=== PATIENT | male | born 1965 | race Caucasian/White ===

== ENCOUNTER 2018-03-09 16:32 | Inpatient (IN) ==
--- NOTE | 2018-03-09 17:24 | Emergency Department Note ---
Disposition Clinical Impression: GI bleeding Qualifiers: GI bleed type/associated pathology: unspecified gastrointestinal hemorrhage type Qualified Code(s): K92.2 - Gastrointestinal hemorrhage, unspecified Disposition: Admitted As Inpatient Condition: Good [facility] - Forms: ED Satisfaction Letter General Adult HPI - General Chief complaint: ED GI Bleed Stated complaint: rectal bleeding Source: patient, EMS Limitations: no limitations Nursing Notes Reviewed: Yes Vital Signs Reviewed: Yes - History of Present Illness HPI Narrative: Patient sent over for diagnosis of GI bleed. Patient takes aspirin and naproxen with no other blood thinners. Patient was seen and evaluated previously in the emergency department for evaluation of GI bleeding. Patient did have a workup and was not found to be significantly anemic so he was set up to have an outpatient colonoscopy performed. His colonoscopy is set up for . However today the patient noticed bright red blood draining down his shorts into his underwear. Patient has had 2 significant episodes of bright red blood per rectum today. He was seen at the [facility] and transferred secondary to a 2 g hemoglobin drop. On exam the patient does have significant bleeding per rectum with bright red blood. Not actively bleeding on my exam. Patient does have associated hemorrhoids. Patient is complaining of dizziness and shortness of breath with exertion. Patient will be brought in for concern for active GI bleed. White blood cell count 11.9. Hemoglobin 13.4. Recently 15.5. Platelets 181. Sodium 136. Potassium 3.9. Chloride 103. CO2 28. Glucose 93. History of hemorrhoids, prostatitis, sciatica, MRSA carrier, bronchopneumonia, hyperlipidemia, hypertension, sleep apnea, obesity, anxiety, low back pain. Pain Scale: 5 - Related Data Previous Rx's Medication Instructions Recorded Docusate [Colace] 100 mg PO BID #14 capsule 03/05/18 Ciprofloxacin [Cipro] 500 mg PO BID #20 mls 03/08/18 Hydrocortisone/Pramoxine 10 gm RC TID PRN #1 foam 03/08/18 [Proctofoam-Hc 1%-1% Foam] José Manuel Orquidea [Tucks] 1 each TP TID #100 med..pad 03/08/18 Allergies Allergy/AdvReac Type Severity Reaction Status Date / Time pseudoephedrine Allergy See Verified 03/09/18 16:36 Comments topiramate Allergy See Verified 03/09/18 16:36 Comments triprolidine Allergy See Verified 03/09/18 16:36 Comments atenolol AdvReac Headache Verified 03/09/18 16:36 hydrocodone AdvReac See Verified 03/09/18 16:36 Comments Review of Systems: CONSTITUTIONAL: No weight loss, fever, chills, weakness or fatigue. HEENT: Eyes: No visual changes. Ears, Nose, Throat: No hearing loss, difficulty talking or unable to swallow. SKIN: No rash or itching. CARDIOVASCULAR: No chest pain, chest pressure or chest discomfort. No palpitations or edema. RESPIRATORY: Shortness of breath with exertion. GASTROINTESTINAL: GI bleeding per rectum with associated nausea but no vomiting. GENITOURINARY: No burning on urination or hematuria. NEUROLOGICAL: Dizziness No headache,syncope, paralysis, ataxia, numbness or tingling in the extremities. No change in bowel or bladder control. MUSCULOSKELETAL: No muscle pain, back pain, joint pain or stiffness. Past Medical History - Past Medical History Medical history: Reports: arthritis, GERD, GI bleed, hyperlipidemia, kidney stones, seizures, other Psychiatric history: Reports: anxiety, depression - Social History Smoking Status: Former smoker Smokeless Tobacco Status: No Alcohol use: Reports: none Drug use: Reports: none Physical Exam General: Well appearing, nontoxic, no acute distress Head: Normocephalic Atraumatic Eyes: PERRL, EOMI ENT: Airway patent, no stridor Neck: supple Chest: Lungs clear to auscultation bilateral Cardiac: Regular rate and rhythm, no murmurs, rubs or gallops Abdomen: Right sided abdominal tenderness. No guarding or rebound. No CVA tenderness. Rectal exam with bright red blood per rectum. Skin: No rash, normal skin tone Neuro: Alert and Oriented to person, place, and time; No focal deficit - General Limitations: no limitations General appearance: alert, in no apparent distress Course - Reevaluation(s) Reevaluation #1: Patient remains stable as long as he is resting in bed. No dizziness or anemia symptoms at rest. - Consultations Consultation #1: Discussed with hospitalist. Patient accepted for admission. Vital Signs Temperature 99 F 03/09/18 16:36 Pulse Rate 82 03/09/18 16:36 Respiratory Rate 20 03/09/18 16:36 Blood Pressure 142/78 03/09/18 16:36 O2 Sat by Pulse Oximetry 97 03/09/18 16:36 Temperature 99 F 03/09/18 16:36 Pulse Rate 82 03/09/18 16:36 Respiratory Rate 20 03/09/18 16:36 Blood Pressure 142/78 03/09/18 16:36 O2 Sat by Pulse Oximetry 97 03/09/18 16:36 Oxygen Delivery Oxygen Delivery Room Air Medical Decision Making - Medical Records Medical records reviewed: Yes I reviewed the patient's medical records. - Lab Data Lab results reviewed: Yes I reviewed the patient's lab results. Result diagrams: 03/09/18 17:51 03/09/18 17:51 Lab Results 03/09/18 03/09/18 03/09/18 Range/Units 17:51 17:51 17:51 Hgb 13.3 D (12.9-16.9) g/dL Hct 38.8 (37.5-50.1) % PT 14.1 H (9.4-12.1) Seconds INR 1.3 Sodium (136-145) mEq/L Potassium (3.5-5.1) mEq/L Chloride (98-107) mEq/L Carbon Dioxide (23-29) mEq/L BUN (6-20) mg/dL Creatinine (0.70-1.30) mg/dL Est GFR ( Amer) (> 60) Est GFR (Non-Af Amer) (> 60) BUN/Creatinine Ratio (6-26) Glucose (70-105) mg/dL Calculated Osmolality (280-300) Calcium (8.6-10.3) mg/dL Total Bilirubin 1.0 (0.3-1.0) mg/dL Direct Bilirubin 0.2 (0.0-0.2) mg/dL Indirect Bilirubin 0.8 (0.0-1.2) mg/dL AST 22 (13-39) Units/L ALT 32 (7-52) Units/L Alkaline Phosphatase 80 (34-104) Units/L Serum Total Protein 7.1 (6.4-8.9) g/dL Albumin 3.7 (3.5-5.7) g/dL Globulin 3.4 (2.4-3.5) g/dL Albumin/Globulin Ratio 1.1 (1.1-2.2) Blood Type Antibody Screen 03/09/18 03/09/18 Range/Units 17:51 17:51 Hgb (12.9-16.9) g/dL Hct (37.5-50.1) % PT (9.4-12.1) Seconds INR Sodium 135 L (136-145) mEq/L Potassium 3.8 (3.5-5.1) mEq/L Chloride 102 (98-107) mEq/L Carbon Dioxide 27 (23-29) mEq/L BUN 12 (6-20) mg/dL Creatinine 0.87 (0.70-1.30) mg/dL Est GFR ( Amer) > 60 (> 60) Est GFR (Non-Af Amer) > 60 (> 60) BUN/Creatinine Ratio 14 (6-26) Glucose 92 (70-105) mg/dL Calculated Osmolality 279 L (280-300) Calcium 8.8 (8.6-10.3) mg/dL Total Bilirubin (0.3-1.0) mg/dL Direct Bilirubin (0.0-0.2) mg/dL Indirect Bilirubin (0.0-1.2) mg/dL AST (13-39) Units/L ALT (7-52) Units/L Alkaline Phosphatase (34-104) Units/L Serum Total Protein (6.4-8.9) g/dL Albumin (3.5-5.7) g/dL Globulin (2.4-3.5) g/dL Albumin/Globulin Ratio (1.1-2.2) Blood Type O NEGATIVE Antibody Screen NEGATIVE - Radiology Data Radiology results reviewed: Yes I reviewed the patient's radiology results.
[2018-03-09] MEDS ORDERED: Isovue-370 500 ML INFUS..BTL IV ONE (17:26)
[2018-03-09 18:08] LABS: Hematocrit 38.8 % (37.5-50.1)
[2018-03-09 18:10] LABS: Hemoglobin 13.3 g/dL (12.9-16.9)
[2018-03-09 18:27] LABS: BUN/Creatinine Ratio 14 (6-26); Blood Urea Nitrogen 12 mg/dL (6-20); Calcium 8.8 mg/dL (8.6-10.3); Carbon Dioxide 27 mEq/L (23-29); Chloride 102 mEq/L (98-107); Glucose 92 mg/dL (70-105); Osmolality,Calculated 279 (280-300); Potassium 3.8 mEq/L (3.5-5.1); Sodium 135 mEq/L (136-145); eGFR For Non-African Americans > 60 (> 60)
[2018-03-09 18:28] LABS: Albumin 3.7 g/dL (3.5-5.7); Albumin/Globulin Ratio 1.1 (1.1-2.2); Bilirubin,Direct 0.2 mg/dL (0.0-0.2); Bilirubin,Indirect 0.8 mg/dL (0.0-1.2); Globulin 3.4 g/dL (2.4-3.5); INR 1.3; Prothrombin Time 14.1 Seconds (9.4-12.1); Total Protein 7.1 g/dL (6.4-8.9)
[2018-03-09] MEDS ORDERED: 0.9 % Sodium Chloride 1,000 ML IVC ONE (19:36)
[2018-03-09] MEDS ORDERED: Ondansetron 4 MG/2 ML VIAL IVP STA (20:26)
[2018-03-09] MEDS ORDERED: *HR* Morphine 2 MG/ML SYRINGE IVP STA (20:26)
[2018-03-09] MEDS: Ringers Solution, Lactated 1,000 ML IVC SCH (22:28)
[2018-03-09] MEDS: Gabapentin 400 MG CAPSULE PO SCH (22:37)
--- NOTE | 2018-03-09 23:32 | Internal Med History&Physical ---
Date of Encounter: 03/09/18 Time of Encounter: 23:30 Internal Medicine - H&P: HPI Chief complaint: rectal bleeding Admitted From: Home Plans for Post Hospital Care: Home History of present illness: Mr. Salas is a 53 year old obese male with a prior history of anxiety disorder , depression, hyperlipidemia, sleep apnea, hemorrhoids, prostatitis, sciatica and chronic lower back pain currently on aspirin and naproxen who presents with lower GI bleeding. Patient was seen and evaluated previously in the emergency department for evaluation of GI bleeding. Patient did have a workup and was not found to be significantly anemic so he was set up to have an outpatient colonoscopy performed. His colonoscopy is set up for . However today the patient noticed bright red blood draining down his shorts into his underwear. Patient has had 2 significant episodes of bright red blood per rectum today. He was seen at the [facility] and transferred secondary to a 2 g hemoglobin drop. On exam the patient was seen to have significant bleeding per rectum with bright red blood but not actively bleeding on my exam. Patient was noted to have associated hemorrhoids. Patient was complaining of dizziness and shortness of breath with exertion. On my assessment he was lying comfortably in bed, stable and complaining of chronic lower back pain. Past Med Surg Social Fam HX - Past Medical History Medical history: arthritis, GERD, GI bleed, hyperlipidemia, kidney stones, seizures, other Additional medical history: chronic back pain, 4 bulging disks, seizures as a child Psychiatric history: anxiety, depression - Past Surgical History Additional surgical history: skin CA removed - Social History Smoking Status: Former smoker Smokeless Tobacco Status: No Alcohol use: none Drug use: none Internal Medicine - H&P: Meds Albuterol Sulfate [Proventil Hfa] 2 puff IH Q4H 03/09/18 [History] Buspirone HCl [Buspar] 15 mg PO TID 03/09/18 [History] FLUoxetine HCl [Fluoxetine HCl] 60 mg PO QAM 03/09/18 [History] Gabapentin [Neurontin] 400 mg PO TID 03/09/18 [History] Hydrocortisone/Pramoxine [Proctofoam-Hc 1%-1% Foam] 1 appl RC TID PRN 03/09/18 [ History] Montelukast [Singulair] 10 mg PO DAILY 03/09/18 [History] Omeprazole [PriLOSEC] 20 mg PO BIDAC 03/09/18 [History] Simvastatin [Zocor] 10 mg PO DAILY 03/09/18 [History] Spironolactone [Aldactone] 25 mg PO DAILY 03/09/18 [History] 3 Allergy/AdvReac Type Severity Reaction Status Date / Time pseudoephedrine Allergy See Verified 03/09/18 16:36 Comments topiramate Allergy See Verified 03/09/18 16:36 Comments triprolidine Allergy See Verified 03/09/18 16:36 Comments atenolol AdvReac Headache Verified 03/09/18 16:36 hydrocodone AdvReac See Verified 03/09/18 16:36 Comments All Systems PM: A 10-system review of systems was performed and is negative for pertinent findings except as documented above in the HPI. - Constitutional Vitals: Temp Pulse Resp BP Pulse Ox 98.6 F 78 15 136/80 96 03/09/18 21:02 03/09/18 21:02 03/09/18 21:02 03/09/18 21:02 03/09/18 21:02 Exam: Vitals: Reviewed and within normal limits General: Obese white male lying in bed in no acute distress Skin: Not diaphoretic, supple and warm HEENT: Moist mucous membranes. No conjunctivae pallor. Neck: No lymphadenopathy. No JVD. No carotid bruits. No palpable thyroid. Chest: Normal thoracic expansion. Normal breath sounds. Clear to auscultation. Heart: Normal S1 & S2; rhythmic. No rubs or murmurs. Abdomen: Obese, soft and non-tender to palpation. No peritoneal reaction. Extremities: No clubbing, cyanosis or edema. No calf tenderness. Normal distal pulses. Neurological: Awake, alert and oriented to person, place and time. No focal deficits. Psych: Affect appropriate. Internal Med - H&P Results - Labs CBC & Chem 7: 03/09/18 17:51 03/09/18 17:51 - Assessment and plan (1) GI bleeding Current Visit: Yes Status: Acute Assessment and plan: Based on the patient's history, current presentation and physical exam it does appear to be anorectal in origin. Other differentials include diverticulosis, polyps and angiodysplasia. Seen to have a 2gr drop in Hgb but is asymptomatic and stable not warranting urgent procedures or transfusion. -Keep on IVF. -Will obtain type and screen. -GI consult requested. -Keep NPO for now. 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 Qualifiers: Obesity classification: adult class 3 (BMI >= 40) Qualified Code(s): E66.01 - Morbid (severe) obesity due to excess calories; Z68.43 - Body mass index (BMI) 50-59.9 , adult (3) Lumbago Current Visit: Yes Status: Chronic Assessment and plan: Not seen to be on any specific analgesics at home. -will place on pain meds as needed. Qualifiers: Chronicity: chronic Back pain laterality: midline Sciatica presence: with sciatica Sciatica laterality: sciatica laterality unspecified Qualified Code(s): M54.40 - Lumbago with sciatica, unspecified side; G89.29 - Other chronic pain (4) Anxiety Current Visit: Yes Status: Chronic Assessment and plan: Stable. Continue buspirone. (5) Depression Current Visit: Yes Status: Chronic Assessment and plan: Stable. Will continue fluoxetine. Qualifiers: Depression Type: unspecified Qualified Code(s): F32.9 - Major depressive disorder, single episode, unspecified (6) DVT prophylaxis Current Visit: Yes Status: Acute Assessment and plan: Antiembolic stockings for now given active bleed. - Time Spent With Patient Total time spent is greater than 50% in coordination of care (as documented) at patient's floor/unit and/or counseling patient: Greater than 35 minutes
[2018-03-09] MEDS ORDERED: Ketorolac 30 MG/ML VIAL IVP ONE (23:41)
[2018-03-10] MEDS ORDERED: OXYCODONE Oral CONC 10 MG/0.5 ML ORAL.SYG SL SCH
[2018-03-10] MEDS ORDERED: OXYCODONE Oral CONC 10 MG/0.5 ML ORAL.SYG SL PRN (01:26)
[2018-03-10] MEDS: Ringers Solution, Lactated 1,000 ML IVC SCH ×2 (06:30→15:00)
[2018-03-10 07:28] LABS: Basophils % 0.4 %; Eosinophils # 0.1 K/mcL (0.0-0.6); Hematocrit 35.5 % (37.5-50.1); Hemoglobin 12.2 g/dL (12.9-16.9); Immature Granulocytes % 0.4 % (0-4); Lymphocytes # 1.7 K/mcL (0.6-4.6); Lymphocytes % 24.8 %; Mean Corpuscular HGB Conc 34.4 g/dL (31.6-35.5); Mean Corpuscular Hemoglobin 31.9 pg (28.0-33.3); Mean Corpuscular Volume 92.7 fL (83.0-100.0); Mean Platelet Volume 8.6 fL (9.4-12.4); Monocytes # 0.7 K/mcL (0.0-1.3); Monocytes % 10.4 %; Neutrophils # 4.3 K/mcL (1.6-8.9); Platelet Count 159 K/mcL (140-400); Red Blood Count 3.83 M/mcL (4.19-5.50); Red Cell Distribution Width 13.3 % (11.5-14.5)
[2018-03-10 07:35] LABS: Alanine Aminotransferase 28 Units/L (7-52); Albumin 3.4 g/dL (3.5-5.7); Albumin/Globulin Ratio 1.1 (1.1-2.2); Alkaline Phosphatase 68 Units/L (34-104); Aspartate Amino Transferase 21 Units/L (13-39); BUN/Creatinine Ratio 18 (6-26); Blood Urea Nitrogen 15 mg/dL (6-20); Calcium 8.5 mg/dL (8.6-10.3); Carbon Dioxide 26 mEq/L (23-29); Chloride 104 mEq/L (98-107); Glucose 86 mg/dL (70-105); Osmolality,Calculated 282 (280-300); Potassium 3.5 mEq/L (3.5-5.1); Sodium 136 mEq/L (136-145); Total Protein 6.4 g/dL (6.4-8.9); eGFR For Non-African Americans > 60 (> 60)
[2018-03-10] MEDS ORDERED: Pantoprazole 40 MG VIAL IVP SCH (09:00)
[2018-03-10] MEDS: FLUoxetine 20 MG CAPSULE PO SCH (09:45)
[2018-03-10] MEDS: Gabapentin 400 MG CAPSULE PO SCH ×3 (09:46→20:21)
--- NOTE | 2018-03-10 11:02 | Gastroenterology Consult Note ---
Date of Encounter: 03/10/18 Time of Encounter: 10:05 - Assessment and plan (1) Rectal bleeding Current Visit: No Status: Acute Assessment and plan: Pt with BRBPR. Hgb on admission was 13.3 and today Hgb 12.2. Hgb 15.4 on 2017. Continue to monitor CBC and transfuse as needed. Plan for EGD and colonoscopy tomorrow. Clear liquid diet today, no red or purple. NPO at midnight. If unable tolerate NuLytely please use MiraLAX prep. If not clear by 6 AM, give 2 tap water enemas. (2) Rectal pain Current Visit: No Status: Acute Assessment and plan: Continue Epifoam, start daily fiber supplement. Plan for colonoscopy tomorrow. - Time Spent With Patient Total time spent is greater than 50% in coordination of care (as documented) at patient's floor/unit and/or counseling patient: GI History of Present Illness - Data of Consult Patient: known to practice within the last 3 years Consult date: 03/10/18 Requesting Physician: Georgie Aaron MD - Consult Narrative Reason for consult: Lower GI bleed History of present illness: Mr. Salas is a 53 year old male with PMHx of arthritis, GERD, GI bleed, HLD, kidney stones, and sleep apnea. The patient reports history of rectal bleeding for the past several months. He was seen in our office on 02/05/18 and colonoscopy was ordered at that time and was scheduled for 03/12/2018. He was seen recently in the ED for evaluation of GI bleeding and found to have Hgb of 15.4 on 03/05/18. Yesterday he noticed bright red blood draining into his underwear. Pt was seen at the [facility] and transferred secondary to a 2 g hemoglobin drop. Hgb on admission was 13.3 and today Hgb 12.2. CT A/P shows no acute process in the abdomen or pelvis. Procedures: Colonoscopy at [facility] 5 years ago "polyps" per patient report. NSAIDs: ASA, Naproxen Anticoagulation: None Past Med Surg Social Fam HX - Past Medical History Medical history: arthritis, GERD, GI bleed, hyperlipidemia, kidney stones, seizures, other Additional medical history: chronic back pain, 4 bulging disks, seizures as a child Psychiatric history: anxiety, depression - Past Surgical History Additional surgical history: skin CA removed - Social History Smoking Status: Former smoker Smokeless Tobacco Status: No Alcohol use: none Drug use: none - Gastrointestinal Gastrointestinal: Present: as per HPI - Constitutional Constitutional: as per HPI - EENT Eyes: as per HPI Ears: Present: as per HPI Nose, mouth and throat: Present: as per HPI - Cardiovascular Cardiovascular ROS: Present: as per HPI - Respiratory Respiratory IM: Present: as per HPI - Genitourinary Genitourinary: Absent: change in color, Urinary frequency - Neurological ROS Neurological GI: Present: as per HPI - Hematologic/Lymphatic Hematologic/Lymphatic pediatric: Present: as per HPI - Musculoskeletal Musculoskeletal ROS GI: Present: as per HPI - Integumentary Integumentary GI: Present: as per HPI - Psychiatric ROS Psychiatric GI: Present: as per HPI - Endocrine Endocrine IM: Present: as per HPI - Constitutional Vitals: Temp Pulse Resp BP Pulse Ox 98.3 F 61 18 122/76 97 03/10/18 10:33 03/10/18 10:33 03/10/18 10:33 03/10/18 10:33 03/10/18 10:33 General appearance: Present: cooperative, A&O X 3, no acute distress, answers questions appropriately - Head Head exam: Present: atraumatic, normocephalic - Eye Eye exam: Present: normal appearance, sclera anicteric - ENT ENT exam: Present: mucous membranes dry - Neck Neck exam general surgery: Present: normal inspection, trachea midline - Respiratory Respiratory exam: Present: CTAB. Absent: rales, rhonchi, wheezes Additional comments: CPAP - Cardiovascular Cardiovascular exam: Present: RRR, +S1, +S2 - GI/Abdominal GI/Abdominal exam: Present: soft, no peritoneal signs. Absent: distended, firm , guarding, tenderness Additional comments: morbid obesity - Rectal Rectal exam: Present: deferred - Extremities Exam Extremities exam: Present: warm - Neurological Exam Neurological exam: Present: no focal deficits - Psychiatric Psychiatric exam: Present: normal affect, normal mood - Skin Skin exam: Present: dry, intact, normal color, warm Results - Labs CBC & Chem 7: 03/10/18 06:50 03/10/18 06:50 Labs: Last Result Calcium 8.5 mg/dL (8.6-10.3) L 03/10/18 06:50 Entire Visit Hgb 12.2 g/dL (12.9-16.9) L 03/10/18 06:50 Hct 35.5 % (37.5-50.1) L 03/10/18 06:50 PT 14.1 Seconds (9.4-12.1) H 03/09/18 17:51 Total Bilirubin 1.0 mg/dL (0.3-1.0) 03/10/18 06:50 AST 21 Units/L (13-39) 03/10/18 06:50 ALT 28 Units/L (7-52) 03/10/18 06:50 - ABG ABG results: PT/INR, D-dimer PT 14.1 Seconds (9.4-12.1) H 03/09/18 17:51 Consult Discharge Plan - Plan Referrals: [facility] [Outside]
--- NOTE | 2018-03-10 13:14 | Internal Med Progress Note ---
Hospitalist Progress Note - Encounter Date of Encounter: 03/10/18 Time of Encounter: 10:15 - Subjective Interval History: Patient currently sleeping with CPAP in place. Awakes easily. Complains of continued rectal bleeding. Did have a bowel movement earlier today. Mixed with blood. Denies any dizziness or lightheadedness. No nausea or vomiting. No abdominal pain. - Exam Vitals: Temp Pulse Resp BP Pulse Ox 98.3 F 61 18 122/76 97 03/10/18 10:33 03/10/18 10:33 03/10/18 10:33 03/10/18 10:33 03/10/18 10:33 Exam: General: Patient is alert, no acute distress, oriented x 3, morbidly obese Head: atraumatic, normocephalic, Eye: normal appearance, PERRL, no scleral icterus, no conjunctival injection ENT: mucous membranes moist, normal external ear exam Neck: normal inspection, trachea midline, full ROM, no carotid bruits Chest: normal inspection, symmetric chest rise Respiratory: Good respiratory effort. Normal breath sounds. No wheezing or crackles.. Cardiovascular: Regular rate and rhythm. s1 and s2 No clicks, rubs, gallops, or murmurs. No pedal edema Abdomen: Abdomen is soft, nontender. Bowel sounds are present Musculoskeletal: Spontaneously moving all extremities. Skin: warm, dry, intact. Neuro: Alert oriented x 3 normal cranial nerves, no focal deficits Psych: Patient's affect is normal - Assessment and Plan (1) GI bleeding Current Visit: Yes Status: Acute Assessment and Plan: Continue with lower GI bleed. Discussed with GI. Plan for bowel prep today and colonoscopy and upper GI endoscopy tomorrow. Continue to monitor hemoglobin levels. Hemoglobin 12.2 today. Continue PPI (2) Obesity due to excess calories Current Visit: Yes Status: Chronic (3) Lumbago Current Visit: Yes Status: Chronic Assessment and Plan: Continue home medications including gabapentin (4) Anxiety Current Visit: Yes Status: Chronic Assessment and Plan: Continue BuSpar and fluoxetine (5) Depression Current Visit: Yes Status: Chronic Assessment and Plan: Continue fluoxetine DVT Prophylaxis: SCDs alone due to GI bleed - Time Spent with Patient Total time spent is greater than 50% in coordination of care (as documented) at patient's floor/unit and/or counseling patient: Plan of Care Discussed with: patient Internal Medicine: Result - Labs CBC & Chem 7: 03/10/18 06:50 03/10/18 06:50 Labs: Short CBC 03/10/18 Range/Units 06:50 WBC 6.9 (4.3-11.1) K/mcL Hgb 12.2 L (12.9-16.9) g/dL Hct 35.5 L (37.5-50.1) % Plt Count 159 (140-400) K/mcL Neutrophils # 4.3 (1.6-8.9) K/mcL BMP 03/10/18 06:50 Sodium 136 Potassium 3.5 Chloride 104 Carbon Dioxide 26 BUN 15 Creatinine 0.85 Glucose 86 Calcium 8.5 L Liver Function 03/10/18 Range/Units 06:50 Total Bilirubin 1.0 (0.3-1.0) mg/dL AST 21 (13-39) Units/L ALT 28 (7-52) Units/L Alkaline Phosphatase 68 (34-104) Units/L Albumin 3.4 L (3.5-5.7) g/dL - ABG Interpretation ABG results: PT/INR, D-dimer PT 14.1 Seconds (9.4-12.1) H 03/09/18 17:51 - VTE Documentation of Mechanical Device: Graduated compression elastic hosiery Consult Discharge Plan - Plan Referrals: [facility] [Outside] (1) GI bleeding Qualifiers: GI bleed type/associated pathology: anorectal hemorrhage Qualified Code(s): K62.5 - Hemorrhage of anus and rectum (2) Obesity due to excess calories Qualifiers: Obesity classification: adult class 3 (BMI >= 40) Qualified Code(s): E66.01 - Morbid (severe) obesity due to excess calories; Z68.43 - Body mass index (BMI ) 50-59.9 , adult (3) Lumbago Qualifiers: Chronicity: chronic Back pain laterality: midline Sciatica presence: with sciatica Sciatica laterality: sciatica laterality unspecified Qualified Code(s ): M54.40 - Lumbago with sciatica, unspecified side; G89.29 - Other chronic pain (5) Depression Qualifiers: Depression Type: unspecified Qualified Code(s): F32.9 - Major depressive disorder, single episode, unspecified
[2018-03-10] MEDS ORDERED: SODIUM CHLORIDE/NAHCO3/KCL/PEG 4,000 ML SOLN.RECON PO ONE (17:00)
--- NOTE | 2018-03-10 19:52 | Anesthesia Evaluation PreOp ---
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 (chronic low back pain, anxiety, depression) Other Medical History: GERD, Other (morbid obesity, BMI 51,) Anesthesia History: No Prior Anesthetic Complications, Past Anesthesia (skin ca) Alcohol Use: none Drug use: none Medications and Allergies Albuterol Sulfate [Proventil Hfa] 2 puff IH Q4H 03/09/18 [History] Buspirone HCl [Buspar] 15 mg PO TID 03/09/18 [History] FLUoxetine HCl [Fluoxetine HCl] 60 mg PO QAM 03/09/18 [History] Gabapentin [Neurontin] 400 mg PO TID 03/09/18 [History] Hydrocortisone/Pramoxine [Proctofoam-Hc 1%-1% Foam] 1 appl RC TID PRN 03/09/18 [ History] Montelukast [Singulair] 10 mg PO DAILY 03/09/18 [History] Omeprazole [PriLOSEC] 20 mg PO BIDAC 03/09/18 [History] Simvastatin [Zocor] 10 mg PO DAILY 03/09/18 [History] Spironolactone [Aldactone] 25 mg PO DAILY 03/09/18 [History] 3 Allergy/AdvReac Type Severity Reaction Status Date / Time pseudoephedrine Allergy See Verified 03/09/18 16:36 Comments topiramate Allergy See Verified 03/09/18 16:36 Comments triprolidine Allergy See Verified 03/09/18 16:36 Comments atenolol AdvReac Headache Verified 03/09/18 16:36 hydrocodone AdvReac See Verified 03/09/18 16:36 Comments - Meds/Allergy Pre-op Review Medications Reviewed: Yes Allergies Reviewed: Yes Beta Blockers on Current Med List: No Anesthesia Results - Labs 03/10/18 06:50 03/10/18 06:50 Anesthesia Exam Vital Signs/O2 Sat, Most Current Temp Pulse Resp BP Pulse Ox 98.0 F 70 15 153/77 94 03/10/18 19:45 03/10/18 19:45 03/10/18 19:45 03/10/18 19:45 03/10/18 19:45 Weight: 155kg <Mary Kay Morrissey - Last Filed: 03/11/18 13:59> Date of Encounter: 03/11/18 - Past History Cardiac History: Hyperlipidemia Pulmonary History: Former smoker (quit 1990s), Asthma, FAWAD Dx (+ CPAP use [15 cm H20]) 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: Seizures (childhood Sz), Other Other Medical History: Renal (CKD), Other Anesthesia History: Past Anesthesia (skin ca [L-roman catholic], Sinus sx) Anesthesia Results - Labs 03/11/18 05:45 03/11/18 05:45 Laboratory Results WBC 7.3 K/mcL (4.3-11.1) 03/11/18 05:45 RBC 4.17 M/mcL (4.19-5.50) L 03/11/18 05:45 Hgb 13.6 g/dL (12.9-16.9) 03/11/18 05:45 Hct 38.5 % (37.5-50.1) 03/11/18 05:45 MCV 92.3 fL (83.0-100.0) 03/11/18 05:45 MCH 32.6 pg (28.0-33.3) 03/11/18 05:45 MCHC 35.3 g/dL (31.6-35.5) 03/11/18 05:45 RDW 13.1 % (11.5-14.5) 03/11/18 05:45 Plt Count 208 K/mcL (140-400) 03/11/18 05:45 MPV 8.6 fL (9.4-12.4) L 03/11/18 05:45 Immature Gran % 1.1 % (0-4) 03/11/18 05:45 Seg Neutrophils % 61.9 % 03/11/18 05:45 Lymphocytes % 24.9 % 03/11/18 05:45 Monocytes % 10.0 % 03/11/18 05:45 Eosinophils % 1.4 % 03/11/18 05:45 Basophils % 0.7 % 03/11/18 05:45 Neutrophils # 4.5 K/mcL (1.6-8.9) 03/11/18 05:45 Lymphocytes # 1.8 K/mcL (0.6-4.6) 03/11/18 05:45 Monocytes # 0.7 K/mcL (0.0-1.3) 03/11/18 05:45 Eosinophils # 0.1 K/mcL (0.0-0.6) 03/11/18 05:45 Basophils # 0.1 K/mcL (0.0-0.2) 03/11/18 05:45 Immature Plt Fraction 1.3 % (1.1-6.1) 03/11/18 05:45 PT 14.1 Seconds (9.4-12.1) H 03/09/18 17:51 INR 1.3 03/09/18 17:51 Sodium 138 mEq/L (136-145) 03/11/18 05:45 Potassium 3.7 mEq/L (3.5-5.1) 03/11/18 05:45 Chloride 106 mEq/L (98-107) 03/11/18 05:45 Carbon Dioxide 23 mEq/L (23-29) 03/11/18 05:45 BUN 13 mg/dL (6-20) 03/11/18 05:45 Creatinine 0.88 mg/dL (0.70-1.30) 03/11/18 05:45 Est GFR ( Amer) > 60 (> 60) 03/11/18 05:45 Est GFR (Non-Af Amer) > 60 (> 60) 03/11/18 05:45 BUN/Creatinine Ratio 15 (6-26) 03/11/18 05:45 Glucose 91 mg/dL (70-105) 03/11/18 05:45 POC Glucose 86 mg/dL (70-99) 03/11/18 05:33 Calculated Osmolality 286 (280-300) 03/11/18 05:45 Calcium 8.8 mg/dL (8.6-10.3) 03/11/18 05:45 Total Bilirubin 1.0 mg/dL (0.3-1.0) 03/10/18 06:50 Direct Bilirubin 0.2 mg/dL (0.0-0.2) 03/09/18 17:51 Indirect Bilirubin 0.8 mg/dL (0.0-1.2) 03/09/18 17:51 AST 21 Units/L (13-39) 03/10/18 06:50 ALT 28 Units/L (7-52) 03/10/18 06:50 Alkaline Phosphatase 68 Units/L (34-104) 03/10/18 06:50 Serum Total Protein 6.4 g/dL (6.4-8.9) 03/10/18 06:50 Albumin 3.4 g/dL (3.5-5.7) L 03/10/18 06:50 Globulin 3.0 g/dL (2.4-3.5) 03/10/18 06:50 Albumin/Globulin Ratio 1.1 (1.1-2.2) 03/10/18 06:50 Blood Type O NEGATIVE 03/09/18 17:51 Antibody Screen NEGATIVE 03/09/18 17:51 Impressions Abdomen/Pelvis CT 03/09/18 17:26 IMPRESSION: No acute process in the abdomen or pelvis. No explanation for the patient's rectal pain is identified. Punctate nonobstructing stone mid pole left kidney. Fatty liver. D/ / 03/09/2018 18:40:16 Moncho Huston MD / vish Interpreting Provider: Moncho Huston MD Anesthesia Exam Vital Signs Temp Pulse Resp BP Pulse Ox 03/11/18 10:09 98.1 F 69 15 133/89 95 03/11/18 08:35 96 03/11/18 07:23 98.0 F 66 19 151/93 96 03/11/18 04:25 98.3 F 63 15 142/85 95 03/11/18 01:12 21 96 03/10/18 23:59 98.5 F 71 15 140/90 97 03/10/18 19:45 98.0 F 70 15 153/77 94 03/10/18 14:28 97.4 F L 71 18 145/85 97 Intake and Output 03/10/18 03/11/18 03/11/18 23:59 07:59 15:59 Intake Total 1360 / 1360 1300 / 1300 200 / 200 Output Total 0 / 0 Balance 1360 / 1360 1300 / 1300 200 / 200 Intake: IV Fluids 1000 / 1000 1300 / 1300 200 / 200 Lactated Ringers 1,000 ML @ 75 1300 / 1300 200 / 200 mls/hr IVC .[id number] EMIR Rx#: [id number] Oral 360 / 360 0 / 0 0 / 0 Output: Urine 0 / 0 Other: Meal Dinner npo Stool Size Small Stool Consistency loose liquid Stool Color Yellow # Voids 1 1 # Bowel Movements 2 # Bowel Movement Diapers 5 Weight 154.5 kg Blood Glucose* 86 87 Patient Weight 03/11/18 23:59 Weight 154.5 kg Height: 5'8" Weight: 340# BMI = 51 - HEENT Pupil (Motor): Pupils equal, EOMI Mallampati: III Teeth: Poor dentition Oral Opening: Greater than 3 - 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 Nicole Zarco MD
[2018-03-10] MEDS: Pantoprazole 40 MG VIAL IVP SCH (20:22)
[2018-03-11] MEDS: Ringers Solution, Lactated 1,000 ML IVC SCH (04:25)
[2018-03-11 05:57] LABS: Basophils % 0.7 %; Eosinophils % 1.4 %; Immature Granulocytes % 1.1 % (0-4); Mean Platelet Volume 8.6 fL (9.4-12.4)
[2018-03-11 06:04] LABS: Basophils # 0.1 K/mcL (0.0-0.2); Eosinophils # 0.1 K/mcL (0.0-0.6); Hematocrit 38.5 % (37.5-50.1); Hemoglobin 13.6 g/dL (12.9-16.9); Immature Platelets 1.3 % (1.1-6.1); Lymphocytes # 1.8 K/mcL (0.6-4.6); Lymphocytes % 24.9 %; Mean Corpuscular HGB Conc 35.3 g/dL (31.6-35.5); Mean Corpuscular Hemoglobin 32.6 pg (28.0-33.3); Mean Corpuscular Volume 92.3 fL (83.0-100.0); Monocytes # 0.7 K/mcL (0.0-1.3); Neutrophils # 4.5 K/mcL (1.6-8.9); Platelet Count 208 K/mcL (140-400); Red Blood Count 4.17 M/mcL (4.19-5.50); Red Cell Distribution Width 13.1 % (11.5-14.5); Segmented Neutrophils % 61.9 %
[2018-03-11 06:38] LABS: BUN/Creatinine Ratio 15 (6-26); Blood Urea Nitrogen 13 mg/dL (6-20); Calcium 8.8 mg/dL (8.6-10.3); Carbon Dioxide 23 mEq/L (23-29); Chloride 106 mEq/L (98-107); Glucose 91 mg/dL (70-105); Osmolality,Calculated 286 (280-300); Potassium 3.7 mEq/L (3.5-5.1); Sodium 138 mEq/L (136-145); eGFR For Non-African Americans > 60 (> 60)
[2018-03-11] MEDS: FLUoxetine 20 MG CAPSULE PO SCH (07:44)
[2018-03-11] MEDS: Pantoprazole 40 MG VIAL IVP SCH (07:44)
[2018-03-11] MEDS: Gabapentin 400 MG CAPSULE PO SCH ×2 (07:44→15:00)
[2018-03-11] MEDS ORDERED: Propofol 500 MG/50 ML INFUS..BTL ONE (13:24)
[2018-03-11] MEDS ORDERED: Tetracaine/Benzocaine/Butamben 200MG/SPRAY (100SPY/BOT) MM ONE (13:59)
[2018-03-11] MEDS ORDERED: Simethicone 40 MG/0.6 ML MLS IR ONE (13:59)
[2018-03-11] MEDS ORDERED: 0.9 % Sodium Chloride 500 ML IVC SCH (14:00)
--- NOTE | 2018-03-11 14:38 | Discharge Summary ---
- NOTES TO OUTPATIENT PROVIDER Notes to Outpatient Provider: Patient hospitalized with painless rectal bleeding. He did have decrease in his hemoglobin levels of about 2 g. As such he was observed and gastroenterology was consulted. Patient underwent colonoscopy today which showed internal hemorrhoids with stigmata of recent bleeding. They were not actively bleeding at this time. Patient his hemoglobin levels have been stable. Stick will be discharged today and can follow-up outpatient with GI for further management. In the meantime recommend stool softeners and increasing fiber in his diet to prevent constipation and further episodes of bleeding. Date of Encounter: 03/11/18 Time of Encounter: 14:36 - Discharge Diagnosis (1) GI bleeding Priority: Primary Status: Acute Qualifiers: GI bleed type/associated pathology: anorectal hemorrhage Qualified Code(s) : K62.5 - Hemorrhage of anus and rectum (2) Obesity due to excess calories Priority: Secondary Status: Chronic Qualifiers: Obesity classification: adult class 3 (BMI >= 40) Qualified Code(s): E66.01 - Morbid (severe) obesity due to excess calories; Z68.43 - Body mass index (BMI) 50-59.9 , adult (3) Lumbago Priority: Secondary Status: Chronic Qualifiers: Chronicity: chronic Back pain laterality: midline Sciatica presence: with sciatica Sciatica laterality: sciatica laterality unspecified Qualified Code(s): M54.40 - Lumbago with sciatica, unspecified side; G89.29 - Other chronic pain (4) Anxiety Priority: Secondary Status: Chronic (5) Depression Priority: Secondary Status: Chronic Qualifiers: Depression Type: unspecified Qualified Code(s): F32.9 - Major depressive disorder, single episode, unspecified Hospital course: Mr. Salas is a 53 year old male Discharge discussed with: patient, nurse - Time Spent with Patient Total time spent providing and/or coordinating discharge services: Less than 30 minutes (25 min) - Discharge Medications Prescriptions: Calcium Polycarbophil [Fibercon] 1,250 mg PO DAILY #30 tablet Home Medications: Albuterol Sulfate [Proventil Hfa] 2 puff IH Q4H 03/09/18 [History] Buspirone HCl [Buspar] 15 mg PO TID 03/09/18 [History] FLUoxetine HCl [Fluoxetine HCl] 60 mg PO QAM 03/09/18 [History] Gabapentin [Neurontin] 400 mg PO TID 03/09/18 [History] Hydrocortisone/Pramoxine [Proctofoam-Hc 1%-1% Foam] 1 appl RC TID PRN 03/09/18 [ History] Montelukast [Singulair] 10 mg PO DAILY 03/09/18 [History] Omeprazole [PriLOSEC] 20 mg PO BIDAC 03/09/18 [History] Simvastatin [Zocor] 10 mg PO DAILY 03/09/18 [History] Spironolactone [Aldactone] 25 mg PO DAILY 03/09/18 [History] Calcium Polycarbophil [Fibercon] 1,250 mg PO DAILY #30 tablet 03/11/18 [Rx] Allergies/Adverse Reactions: 3 Allergy/AdvReac Type Severity Reaction Status Date / Time pseudoephedrine Allergy See Verified 03/09/18 16:36 Comments topiramate Allergy See Verified 03/09/18 16:36 Comments triprolidine Allergy See Verified 03/09/18 16:36 Comments atenolol AdvReac Headache Verified 03/09/18 16:36 hydrocodone AdvReac See Verified 03/09/18 16:36 Comments Date of admission: 03/09/18 20:43 [facility] care physician: [facility] Consults: 03/09/18 20:41 Consult to Gastroenterology [CONS] Routine Consulting Provider: Mer Xie Reason for Consult: 53 year old male admitted for LGIB, noted to have painless allen bright red blood per rectum with a drop in Hgb from baseline. Hemodynamics stable. Scheduled for colonoscopy in 3 days as outpatient. Call Completed: No Discharging clinician: Georgie Aaron Anticipated date of discharge: 03/11/18 - Constitutional Vitals: Temp Pulse Resp BP Pulse Ox 98.1 F 69 16 140/74 94 03/11/18 10:09 03/11/18 13:54 03/11/18 13:54 03/11/18 13:54 03/11/18 13:54 General appearance: Present: cooperative, A&O X 3, answers questions appropriately - Neck Neck exam general surgery: Present: supple, trachea midline. Absent: lymphadenopathy - Respiratory Respiratory exam: Present: CTAB. Absent: accessory muscle use, rales, rhonchi, wheezes - Cardiovascular Cardiovascular exam: Present: RRR, +S1, +S2. Absent: diastolic murmur, gallop, rubs, systolic murmur - GI/Abdominal GI/Abdominal exam: Present: normal bowel sounds, soft, no peritoneal signs. Absent: distended, tenderness - Patient Status Disposition: Home, Self-Care Condition: Good Functional capacity at discharge: independent ambulation Overall status at discharge: patient is progressing back to baseline - Discharge Instructions Follow Up With: [facility] [Outside] (Follow-up in 1 week) - Diet and Activity Activity: increase activity as tolerated Diet: low fat, low cholesterol, low salt diet, other (Increase fiber in diet) - VTE Documentation of Mechanical Device: Graduated compression elastic hosiery
--- NOTE | 2018-03-11 14:39 | Anesthesia Evaluation Post Op ---
Date of Encounter: 03/11/18 Time of Encounter: 14:30 - Vital Signs Vital Signs: 3 Vital Signs Time 1430 BP 122/88 Pulse 70 Resp 20 O2 Sat 97 - Lungs Lungs: Clear Ascult./Percussion - Airway Airway: Non-obstructed - Cardiovascular Regular Rate - Mental Status Mental Status: Alert & Oriented, Answers Appropriately - Nausea Vomiting Nausea Vomiting: Not Present - Hydration Hydration: NPO, Has not voided - Discharge PostOp Status: Transfer Patient to floor
[2018-03-11 15:10] VITALS: BP 144/82
[2018-03-12] MEDS ORDERED: Spironolactone 25 MG TABLET PO SCH (09:00)
== END 2018-03-11 15:58 | disposition home or self-care (01) | DRG 394 ==
LOC: 3ANU 16:32 → EMEROO 16:32 → 3ANU 20:42 → SUATTDRO 20:43
PROVIDERS: ADMIT Internal Medicine; ATTEND Internal Medicine